=== PATIENT | male | born 1995 | race African-American/Black ===

== ENCOUNTER 2025-04-28 18:36 | Emergency (ER) | payer OTHER ==
[2025-04-28 19:08] LABS: APPEARANCE,URINE CLEAR; GLUCOSE,URINE NEGATIVE (NEGATIVE); OCCULT BLOOD,URINE NEGATIVE (NEGATIVE)
[2025-04-28 19:23] LABS: EPITHELIAL CELLS,URINE NOT SEEN (NONE-FEW)
[2025-04-28 20:40] LABS: C. TRACHOMATIS BY PCR NOT DETECTED; N. GONORRHOEAE BY PCR DETECTED
== END 2025-04-28 19:05 | disposition left against medical advice (07) ==
LOC: MW.ED 18:36
DX: A54.9 Gonococcal infection, unspecified (principal); Z20.2 Contact with and (suspected) exposure to infections with a predominantly sexual mode of transmission; Z79.899 Other long term (current) drug therapy
CPT/HCPCS: 81001; 87086; 87491; 87591; 99283

== ENCOUNTER 2025-04-29 18:41 | Emergency (ER) | payer OTHER | END 2025-04-29 19:37 | disposition home or self-care (01) | LOC: MW.ED 18:41 | DX: A54.9 Gonococcal infection, unspecified (principal); Z79.899 Other long term (current) drug therapy | CPT/HCPCS: 96372; 99283; J0696; J2003; 99282 ==